=== PATIENT | male | born 1955 | race Two or more races ===

== ENCOUNTER 2021-12-22 19:05 | Emergency (ER) | payer MEDICAID ==
[~2021-12-22] VITALS: Ht 182.9 cm; Wt 74.5 kg
[2021-12-22 19:55] VITALS: BP 157/74
[2021-12-22] MEDS ORDERED: IBUP-1986 PO (22:03)
[2021-12-22] MEDS ORDERED: AMOX-117 PO (22:03)
[2021-12-22] MEDS ORDERED: amox tr/potassium clavulanate 875/125mg TAB PO ONE (22:05)
[2021-12-22] MEDS ORDERED: ketorolac trometh inj. 60 MG/2 ML VIAL IM ONE (22:05)
== END 2021-12-22 22:19 | disposition home or self-care (01) ==
LOC: ER 19:07
DX: R68.84 Jaw pain (principal); H66.92 Otitis media, unspecified, left ear; Z79.2 Long term (current) use of antibiotics; Z79.899 Other long term (current) drug therapy
CPT/HCPCS: 96372; 99283; J1885